=== PATIENT | female | born 1975 | race African-American/Black ===

== ENCOUNTER 2018-08-06 08:52 | Emergency (ER) | payer OTHER ==
[2018-08-06] MEDS ORDERED: ACETAMINOPHEN 500 MG TABLET (FP) PO ONE (09:25)
[2018-08-06 09:36] VITALS: BP 151/89; PULSE 90; TEMP 98.2; BMI 28.0
[2018-08-06] MEDS ORDERED: ACETAMINOPHEN 325 MG TABLET (FP) PO ONE (09:45)
[2018-08-06] MEDS ORDERED: ACETAMINOPHEN 325 MG TABLET (FP) ONE (09:47)
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
== END 2018-08-06 11:48 | disposition home or self-care (01) ==
LOC: JER 08:52
DX: S16.1XXA Strain of muscle, fascia and tendon at neck level, initial encounter (principal); V43.52XA Car driver injured in collision with other type car in traffic accident, initial encounter; Y93.89 Activity, other specified; Y92.410 Unspecified street and highway as the place of occurrence of the external cause; I10 Essential (primary) hypertension
CPT/HCPCS: 72125-TC; 84703; 99282-25